=== PATIENT | male | born 1950 | race Caucasian/White ===

== ENCOUNTER 2016-10-10 08:41 | Observation (INO) | payer MEDICARE, OTHER ==
[2016-10-10] VITALS (7 sets, daily range): BP systolic 129–140; BP diastolic 64–96; PULSE 64–79; RESP 15–20; TEMP 97.5–98.6; O2SAT 88–96
[~2016-10-10] VITALS: Ht 172.7 cm; Wt 84.0 kg
--- NOTE | 2016-10-10 08:52 | PD ---
HPI Chief Complaint: syncope Time Seen by Provider: 08:47 Travel History International Travel<30 days: No (unknown) Contact w/Intl Traveler<30days: No (unknown) History of Present Illness HPI 66yo M presents to the ED with c/o episode of syncope today. Pt states he got up and passed out before he hit his head. Pt with laceration on mid forehead. Pt is also complaining of burning sensation in bilateral hands up to around elbow. Pt also had numbness in bilateral hands that is improving on its own. Pt had cervical spine fusion 6 years ago. Denies any fever, chest pain, sob, n/ v, abdominal pain, focal weakness. PFSH Social History Tobacco Use: No (unknown) Allergies-Medications (Allergen,Severity, Reaction): Coded Allergies: No Known Allergies (Unverified , 10/10/16) Reported Meds & Prescriptions Reported Meds & Active Scripts Active Reported Rapaflo (Silodosin) 8 Mg Cap 8 Mg PO DAILY Lipitor (Atorvastatin Calcium) 10 Mg Tab 10 Mg PO HS Carvedilol 6.25 Mg Tab 6.25 Mg PO BID Lisinopril-Hctz 10-12.5 Mg Tab 1 Tab PO DAILY Avodart (Dutasteride) 0.5 Mg Cap 0.5 Mg PO DAILY Aspir-81 (Aspirin) 81 Mg Tabdr Review of Systems Except as stated in HPI: all other systems reviewed are Neg Physical Exam Narrative GENERAL: 66yo M not in distress. SKIN: Warm and dry. HEAD: +6cm superficial laceration in mid forehead. EYES: Pupils equal and round. No scleral icterus. No injection or drainage. ENT: No nasal bleeding or discharge. Mucous membranes pink and moist. NECK: Cervical spine collar in place. CARDIOVASCULAR: Regular rate and rhythm. No murmur appreciated. RESPIRATORY: No accessory muscle use. Clear to auscultation. Breath sounds equal bilaterally. GASTROINTESTINAL: Abdomen soft, non-tender, nondistended. MUSCULOSKELETAL: No obvious deformities. No clubbing. No cyanosis. No edema. NEUROLOGICAL: Awake and alert. No obvious cranial nerve deficits. Motor grossly within normal limits. Sharp pain in bilateral upper extremities, hands and forearm with light touch. Normal speech. PSYCHIATRIC: Appropriate mood and affect; insight and judgment normal. Data Data Last Documented VS Vital Signs Date Time Temp Pulse Resp B/P Pulse Ox O2 Delivery O2 Flow Rate FiO2 10/10/16 08:44 97.5 64 16 130/[address] Brain W/O Iv Contrast(Rout) (10/10/16 ) Ct Cerv Spine W/O Contrast (10/10/16 ) Complete Blood Count With Diff (10/10/16 08:47) Basic Metabolic Panel (Bmp) (10/10/16 08:47) Prothrombin Time / Inr (Pt) (10/10/16 08:47) Act Partial Throm Time (Ptt) (10/10/16 08:47) Electrocardiogram (10/10/16 08:47) Magnesium (Mg) (10/10/16 08:47) Ckmb (Isoenzyme) Profile (10/10/16 08:47) Troponin I (10/10/16 08:47) Urinalysis - C+S If Indicated (10/10/16 08:47) Ecg Monitoring (10/10/16 08:47) Iv Access Insert/Monitor (10/10/16 08:47) Oximetry (10/10/16 08:47) Tetanus/Diphtheria Tox Adult (Tetanus/Di (10/10/16 09:15) Lidocaine 1% Inj (50 Ml) (Xylocaine 1% I (10/10/16 09:15) Acetaminophen (Tylenol) (10/10/16 11:00) Sodium Chlor 0.9% 1000 Ml Inj (Ns 1000 M (10/10/16 11:00) Admit Order (Ed Use Only) (10/10/16 11:07) Labs Laboratory Tests Test 10/10/16 09:00 White Blood Count 5.6 TH/MM3 Red Blood Count 4.78 MIL/MM3 Hemoglobin 14.6 GM/DL Hematocrit 43.0 % Mean Corpuscular Volume 89.9 FL Mean Corpuscular Hemoglobin 30.6 PG Mean Corpuscular Hemoglobin 34.0 % Concent Red Cell Distribution Width 13.2 % Platelet Count 206 TH/MM3 Mean Platelet Volume 8.3 FL Neutrophils (%) (Auto) 59.6 % Lymphocytes (%) (Auto) 23.9 % Monocytes (%) (Auto) 11.4 % Eosinophils (%) (Auto) 4.7 % Basophils (%) (Auto) 0.4 % Neutrophils # (Auto) 3.4 TH/MM3 Lymphocytes # (Auto) 1.3 TH/MM3 Monocytes # (Auto) 0.6 TH/MM3 Eosinophils # (Auto) 0.3 TH/MM3 Basophils # (Auto) 0.0 TH/MM3 CBC Comment DIFF FINAL Differential Comment Prothrombin Time 11.2 SEC Prothromb Time International 1.0 RATIO Ratio Activated Partial 23.5 SEC Thromboplast Time Sodium Level 137 MEQ/L Potassium Level 3.9 MEQ/L Chloride Level 103 MEQ/L Carbon Dioxide Level 26.8 MEQ/L Anion Gap 7 MEQ/L Blood Urea Nitrogen 22 MG/DL Creatinine 1.26 MG/DL Estimat Glomerular Filtration 57 ML/MIN Rate Random Glucose 123 MG/DL Calcium Level 8.8 MG/DL Magnesium Level 2.2 MG/DL Total Creatine Kinase 97 U/L Troponin I LESS THAN 0.02 NG/ML MDM Medical Decision Making Medical Screen Exam Complete: Yes Emergency Medical Condition: Yes Interpretation(s) EKG: Sinus bradycardia at 58bpm. 1st AV block. No ST segment elevation or depression. Differential Diagnosis ICH vs. arrhythmia vs. dehydration vs. electrolyte abnormality Narrative Course 66yo M with forehead laceration s/p fall and syncope. Laceration repair by my PA. Labs reviewed, no leukocytosis. H/H stable. BUN mildly elevated at 22, pt given IVF NS. Troponin negative. CT cspine showed no acute fracture. CT brain normal. Pt given tetanus, acetaminophen. Discussed with Dr. Garrett for admission for further work up of syncope with continuous telemetry monitoring and further work up of paresthesia in hands. Maritza Chao DO Oct 10, 2016 08:52
[2016-10-10] MEDS ORDERED: ASPI81TA81 (09:15)
[2016-10-10] MEDS ORDERED: LIPI10TA PO (09:15)
[2016-10-10] MEDS ORDERED: AVOD0.5C PO (09:15)
[2016-10-10] MEDS ORDERED: TETANUS/DIPHTHERIA TOXOID ADULT 0.5 ML VIAL IM ONE (09:15)
[2016-10-10] MEDS ORDERED: LIDOCAINE HCL 1% 50 ML VIAL INFIL ONE (09:15)
[2016-10-10] MEDS ORDERED: LISI10TA PO (09:15)
[2016-10-10] MEDS ORDERED: RAPA8CAP PO (09:15)
[2016-10-10] MEDS ORDERED: CARV6.252 PO (09:15)
[2016-10-10 09:18] LABS: AUTOMATED NEUTROPHIL # 3.4 TH/MM3 (1.8-7.7); BASOPHIL % 0.4 % (0.0-2.0); EOSINOPHIL # 0.3 TH/MM3 (0-0.4); EOSINOPHIL % 4.7 % (0.0-4.0); HEMO FLAGS DIFF FINAL; LYMPH % 23.9 % (9.0-44.0); LYMPHOCYTE # 1.3 TH/MM3 (1.0-4.8); MEAN CELL VOLUME 89.9 FL (80.0-100.0); MEAN CORPUSCULAR HEMOGLOBIN 30.6 PG (27.0-34.0); MONO % 11.4 % (0.0-8.0); NEUT % 59.6 % (16.0-70.0); PLATELET COUNT 206 TH/MM3 (150-450); RED BLOOD COUNT 4.78 MIL/MM3 (4.50-5.90); RED CELL DISTRIBUTION WIDTH 13.2 % (11.6-17.2); WHITE BLOOD COUNT 5.6 TH/MM3 (4.0-11.0)
[2016-10-10 09:26] LABS: APTT (PATIENT) 23.5 SEC (24.3-30.1); PROTHROMBIN TIME - PATIENT 11.2 SEC (9.8-11.6)
--- NOTE | 2016-10-10 09:35 | RADRPT ---
EXAM DATE/TIME: 10/10/2016 09:07 [facility] COMPARISON: No previous studies available for comparison. INDICATIONS : Syncopal episode with fall; laceration to top of head. RADIATION DOSE: 56.35 CTDIvol (mGy) MEDICAL HISTORY : None SURGICAL HISTORY : Fusion, cervical. ENCOUNTER: Initial ACUITY: 1 day PAIN SCALE: 3/10 LOCATION: cranial TECHNIQUE: Multiple contiguous axial images were obtained of the head. Using automated exposure control and adj ustment of the mA and/or kV according to patient size, radiation dose was kept as low as reasonably a chievable to obtain optimal diagnostic quality images. FINDINGS: CEREBRUM: The ventricles are normal for age. No evidence of midline shift, mass lesion, hemorrhage or acute in farction. No extra-axial fluid collections are seen. POSTERIOR FOSSA: The cerebellum and brainstem are intact. The 4th ventricle is midline. The cerebellopontine angle i s unremarkable. EXTRACRANIAL: The visualized portion of the orbits is intact. SKULL: The calvaria is intact. No evidence of skull fracture. CONCLUSION: Normal examination for a patient of this age. Alex Evangelista MD on October 10, 2016 at 9:32 Board Certified Radiologist. This report was verified electronically.
--- NOTE | 2016-10-10 09:42 | RADRPT ---
EXAM DATE/TIME: 10/10/2016 09:07 [facility] COMPARISON: No previous studies available for comparison. INDICATIONS : Syncopal episode with fall; neck pain, bilateral arm tingling. RADIATION DOSE: 37.27 CTDIvol (mGy) MEDICAL HISTORY : None SURGICAL HISTORY : Fusion, cervical. ENCOUNTER: Initial ACUITY: 1 day PAIN SCALE: 7/10 LOCATION: neck TECHNIQUE: Volumetric scanning of the cervical spine was performed. Multiplanar reconstructions in the sagittal, coronal and oblique axial planes were performed. Using automated exposure control and adjustment o f the mA and/or kV according to patient size, radiation dose was kept as low as reasonably achievable to obtain optimal diagnostic quality images. FINDINGS: Sagittal images demonstrate normal vertebral body alignment and curvature. The odontoid is intact. Th e occipital condyles and lateral masses of C1 are intact. Axial images were performed from C2-C3 to C7-T1. There is anterior cervical fusion with a plate anteriorly from C6-T1. There is osteorathritis involving the atlantoaxial joint with sclerosis and osteophyte formation. C2-C3: There is moderate facet arthritis on the right. There is moderate neural foraminal narrowing on the r ight. There is no significant spinal canal stenosis. C3-C4: Mac uncal moderate rightThere is severe facet arthritis on the right. There is moderate neural thais inal narrowing on the right. C4-C5: No significant abnormalities identified. C5-C6: There is osteophytic ridging along the posterior aspect of vertebral body. There is mild left sided n eural foraminal narrowing. There is no significant spinal canal stenosis. C6-C7: Postsurgical changes as above. There is no significant spinal canal stenosis. C7-T1: Postsurgical changes as above. CONCLUSION: 1. Mild degenerative changes as described above. There is no evidence of acute fracture. There is no significant spinal canal stenosis. David Burnett MD on October 10, 2016 at 9:35 Board Certified Radiologist. This report was verified electronically.
[2016-10-10 09:56] LABS: ANION GAP 7 MEQ/L (5-15); BICARBONATE 26.8 MEQ/L (21.0-32.0); BLOOD UREA NITROGEN 22 MG/DL (7-18); CHLORIDE 103 MEQ/L (98-107); CREATINE KINASE 97 U/L (39-308); GLOMERULAR FILTRATION RATE 57 ML/MIN (>89); MAGNESIUM 2.2 MG/DL (1.5-2.5); POTASSIUM 3.9 MEQ/L (3.5-5.1); SODIUM (NA) 137 MEQ/L (136-145)
[2016-10-10] MEDS ORDERED: SODIUM CHLOR 0.9% 1000 ML INJ 1,000 ML IV ONE (11:00)
[2016-10-10] MEDS ORDERED: ACETAMINOPHEN 325 MG TAB PO ONE (11:00)
--- NOTE | 2016-10-10 11:48 | PD ---
Physical Exam Time Seen by Provider: 11:46 Narrative I was asked by Dr. Chao to repair a laceration on this patient. Please see her note for further details. Data Data Last Documented VS Vital Signs Date Time Temp Pulse Resp B/P Pulse Ox O2 Delivery O2 Flow Rate FiO2 10/10/16 08:44 97.5 64 16 130/[address] Brain W/O Iv Contrast(Rout) (10/10/16 ) Ct Cerv Spine W/O Contrast (10/10/16 ) Complete Blood Count With Diff (10/10/16 08:47) Basic Metabolic Panel (Bmp) (10/10/16 08:47) Prothrombin Time / Inr (Pt) (10/10/16 08:47) Act Partial Throm Time (Ptt) (10/10/16 08:47) Electrocardiogram (10/10/16 08:47) Magnesium (Mg) (10/10/16 08:47) Ckmb (Isoenzyme) Profile (10/10/16 08:47) Troponin I (10/10/16 08:47) Urinalysis - C+S If Indicated (10/10/16 08:47) Ecg Monitoring (10/10/16 08:47) Iv Access Insert/Monitor (10/10/16 08:47) Oximetry (10/10/16 08:47) Tetanus/Diphtheria Tox Adult (Tetanus/Di (10/10/16 09:15) Lidocaine 1% Inj (50 Ml) (Xylocaine 1% I (10/10/16 09:15) Acetaminophen (Tylenol) (10/10/16 11:00) Sodium Chlor 0.9% 1000 Ml Inj (Ns 1000 M (10/10/16 11:00) Admit Order (Ed Use Only) (10/10/16 11:07) Labs Laboratory Tests Test 10/10/16 09:00 White Blood Count 5.6 TH/MM3 Red Blood Count 4.78 MIL/MM3 Hemoglobin 14.6 GM/DL Hematocrit 43.0 % Mean Corpuscular Volume 89.9 FL Mean Corpuscular Hemoglobin 30.6 PG Mean Corpuscular Hemoglobin 34.0 % Concent Red Cell Distribution Width 13.2 % Platelet Count 206 TH/MM3 Mean Platelet Volume 8.3 FL Neutrophils (%) (Auto) 59.6 % Lymphocytes (%) (Auto) 23.9 % Monocytes (%) (Auto) 11.4 % Eosinophils (%) (Auto) 4.7 % Basophils (%) (Auto) 0.4 % Neutrophils # (Auto) 3.4 TH/MM3 Lymphocytes # (Auto) 1.3 TH/MM3 Monocytes # (Auto) 0.6 TH/MM3 Eosinophils # (Auto) 0.3 TH/MM3 Basophils # (Auto) 0.0 TH/MM3 CBC Comment DIFF FINAL Differential Comment Prothrombin Time 11.2 SEC Prothromb Time International 1.0 RATIO Ratio Activated Partial 23.5 SEC Thromboplast Time Sodium Level 137 MEQ/L Potassium Level 3.9 MEQ/L Chloride Level 103 MEQ/L Carbon Dioxide Level 26.8 MEQ/L Anion Gap 7 MEQ/L Blood Urea Nitrogen 22 MG/DL Creatinine 1.26 MG/DL Estimat Glomerular Filtration 57 ML/MIN Rate Random Glucose 123 MG/DL Calcium Level 8.8 MG/DL Magnesium Level 2.2 MG/DL Total Creatine Kinase 97 U/L Troponin I LESS THAN 0.02 NG/ML MDM Medical Record Reviewed: Yes Supervised Visit with STONEY: Yes Procedures Procedure Narrative LACERATION LOCATION: Middle forehead LENGTH: 6 cm NUMBER OF STITCHES/CARLOS: 7 simple interrupted REPAIR: The area of the laceration was prepped with Betadine and sterilely draped. The laceration was infiltrated with 1% lidocaine. The wound was copiously irrigated and explored without evidence of foreign body, tendon injury or neurovascular injury. The wound was closed using 6-0 Prolene. This was a single layer repair. A sterile dressing was applied. The patient was advised to keep the dressing clean and dry. Patient tolerated the procedure well. Romina Kemp Oct 10, 2016 11:48
--- NOTE | 2016-10-10 12:53 | RADRPT ---
EXAM DATE/TIME: 10/10/2016 11:57 [facility] COMPARISON: No previous studies available for comparison. INDICATIONS : Syncope. MEDICAL HISTORY : Hypercholesterolemia. Hypertension. BPH. SURGICAL HISTORY : Lumbar disectomy. Nerve release cervical fusion. Right total knee replacement. ENCOUNTER: Initial ACUITY: 1 day PAIN SCORE: 0/10 LOCATION: Bilateral neck PEAK SYSTOLIC VELOCITIES (cm/sec): ICA/CCA RATIO: Right: 1.1 Left: 1.0 ICA: Right: 112 Left: 76 CCA: Right: 102 Left: 72 ECA: Right: 91 Left: 93 VERTEBRAL: Right: 51 antegrade Left: 40 antegrade Elevated flow velocities and ICA/CCA ratios have been found to correlate with increased degrees of vessel stenosis, calculated as percentage of diameter relative to a normal segment of distal ICA/CCA FINDINGS: RIGHT CAROTID: No significant stenosis is visualized. The waveforms are within normal limits. LEFT CAROTID: No significant stenosis is visualized. The waveforms are within normal limits. VERTEBRAL ARTERIES: Antegrade flow is seen in both vertebral arteries. MISCELLANEOUS: None. CONCLUSION: Normal examination for a patient of this age. Alex Evangelista MD on October 10, 2016 at 12:51 Board Certified Radiologist. This report was verified electronically.
[2016-10-10] MEDS ORDERED: PILL SPLITTER OTHER PRN (13:45)
[2016-10-10 15:11] LABS: BLOOD, URINE NEG (NEG); COMMENT (UR) CULT NOT INDICATED; CULTURE IF INDICATED CULT NOT INDICATED; GLUCOSE,URINE NEG (NEG); KETONE, URINE TRACE mg/dL (NEG); NITRITE,URINE NEG (NEG); PH, URINE 5.5 (5.0-8.5); SQUAMOUS EPITHELIAL CELL URINE 1 /hpf (0-5); URINE COLOR YELLOW (YELLW/STRAW)
[2016-10-10] MEDS ORDERED: SODIUM CHLORIDE 0.9% FLUSH 5 ML FLUSH IV PRN (15:30)
--- NOTE | 2016-10-10 16:23 | HHI.HP ---
HPI [facility] Primary Care Physician Quincy Ogden M.D. Admission Diagnosis Syncope Diagnoses: (1) Syncope Diagnosis: Principal (2) Degenerative disc disease, cervical Diagnosis: Principal (3) Degenerative disc disease, lumbar Diagnosis: Principal (4) Dehydration Diagnosis: Secondary (5) EtOH dependence Diagnosis: Secondary (6) Osteoarthritis (arthritis due to wear and tear of joints) Diagnosis: Secondary Chief Complaint: "passed out" and hit head, Bilateral numbing and pain hands to elbow (Nora Cox) Travel History International Travel<30 Days: No (unknown) Contact w/Intl Traveler <30 Da: No (unknown) Traveled to Known Affected Are: No (Nora Cox) History of Present Illness Patient is a 66-year-old white male who has been in his usual state of health up until the past couple of days. Patient states that he increased his cardio training and walking yesterday and noticed some aching in his hips bilateral as well as his lower back. He denies any headache, no chest pain, no shortness of breath, and had no acute dizziness last p.m. he awoke this morning, got up to go to the bathroom, and had a syncopal episode before reaching the bathroom He does not remember hitting the floor, but did wake up. His came in and found him on the floor with a laceration to his mid forehead. states she felt like patient fell forward and slid down the wall. Patient has had no significant weight change in the past year, no changes in his appetite, denies any diarrhea or constipation, and no fever. Patient does have a significant history of degenerative disc disease with multiple surgeries noted predominantly in the cervical area. He does note to other discectomies as well as T1 surgery. He reports having an MRI in February 2016. Patient was brought to the emergency room where his laceration was sutured. (Nora Cox) Review of Systems ROS Limitations: Other (12 pt. review obtained with positives and negative in the HPI.) (Nora Cox) Past Family Social History Past Medical History Degenerative disc disease Previous tobacco use but quit in 1976 Current EtOH use/dependence with 1-2 glasses of wine a day versus consumption of beer daily. Hypertension Hyperlipidemia BPH Past Surgical History Cervical surgery 2 Right knee surgery Discectomy Left ulnar surgery Reported Medications Medications reconciled. Active Medications Acetaminophen 650 mg 650 mg ONCE ONCE PO Last administered on 10/10/16 11:19; Admin Dose 650 MG; Start 10/10/16 at 11:00; Stop 10/10/16 at 11:01; Status DC Atorvastatin Calcium (Lipitor) 10 mg HS PO; Start 10/10/16 at 21:00 Carvedilol (Coreg) 6.25 mg BID PO; Start 10/10/16 at 21:00 Finasteride (Proscar) 5 mg DAILY PO; Start 10/11/16 at 09:00 Hydrochlorothiazide (Hydrodiuril) 12.5 mg DAILY PO; Start 10/11/16 at 09:00 IV Flush (NS Flush) 2 ml BID IV; Start 10/10/16 at 21:00 IV Flush (NS Flush) 2 ml UNSCH PRN IV; Start 10/10/16 at 15:30 Lidocaine HCl (Xylocaine 1% Inj (50 ml)) 50 ml ONCE ONCE INFIL Last administered on 10/10/16 09:50; Admin Dose 50 ML; Start 10/10/16 at 09:15; Stop 10/10/16 at 09:16; Status DC Lisinopril (Prinivil) 10 mg DAILY PO; Start 10/11/16 at 09:00 Miscellaneous (Pill Splitter) 1 ea UNSCH PRN OTHER; Start 10/10/16 at 13:45 Sodium Chloride (NS 1000 ml Inj) 1,000 ml @ 999 mls/hr BOLUS ONCE IV Last administered on 10/10/16 11:19; Admin Dose 999 MLS/HR; Start 10/10/16 at 11:00 ; Stop 10/10/16 at 12:04; Status DC Tamsulosin HCl (Flomax) 0.4 mg DAILY PO; Start 10/11/16 at 09:00 Tetanus/ Diphtheria Toxoids (Tetanus/ Diphtheria Tox Adult) 0.5 ml ONCE ONCE IM Last administered on 10/10/16 09:50; Admin Dose 0.5 ML; Start 10/10/16 at 09:15 ; Stop 10/10/16 at 09:16; Status DC (Nora Cox) Allergies: Coded Allergies: No Known Allergies (Unverified , 10/10/16) Active Ordered Medications Active Medications Acetaminophen 650 mg 650 mg ONCE ONCE PO Last administered on 10/10/16 11:19; Admin Dose 650 MG; Start 10/10/16 at 11:00; Stop 10/10/16 at 11:01; Status DC Atorvastatin Calcium (Lipitor) 10 mg HS PO; Start 10/10/16 at 21:00 Carvedilol (Coreg) 6.25 mg BID PO; Start 10/10/16 at 21:00 Finasteride (Proscar) 5 mg DAILY PO; Start 10/11/16 at 09:00 Hydrochlorothiazide (Hydrodiuril) 12.5 mg DAILY PO; Start 10/11/16 at 09:00 IV Flush (NS Flush) 2 ml BID IV; Start 10/10/16 at 21:00 IV Flush (NS Flush) 2 ml UNSCH PRN IV; Start 10/10/16 at 15:30 Lidocaine HCl (Xylocaine 1% Inj (50 ml)) 50 ml ONCE ONCE INFIL Last administered on 10/10/16 09:50; Admin Dose 50 ML; Start 10/10/16 at 09:15; Stop 10/10/16 at 09:16; Status DC Lisinopril (Prinivil) 10 mg DAILY PO; Start 10/11/16 at 09:00 Miscellaneous (Pill Splitter) 1 ea UNSCH PRN OTHER; Start 10/10/16 at 13:45 Sodium Chloride (NS 1000 ml Inj) 1,000 ml @ 999 mls/hr BOLUS ONCE IV Last administered on 10/10/16 11:19; Admin Dose 999 MLS/HR; Start 10/10/16 at 11:00 ; Stop 10/10/16 at 12:04; Status DC Tamsulosin HCl (Flomax) 0.4 mg DAILY PO; Start 10/11/16 at 09:00 Tetanus/ Diphtheria Toxoids (Tetanus/ Diphtheria Tox Adult) 0.5 ml ONCE ONCE IM Last administered on 10/10/16 09:50; Admin Dose 0.5 ML; Start 10/10/16 at 09:15 ; Stop 10/10/16 at 09:16; Status DC Family History Hypertension Cancer EtOH abuse Social History Patient is now a nonsmoker Patient does consume daily alcohol usually with wine and or beer Patient is currently lives at home with his (Nora Cox) Physical Exam Vital Signs Vital Signs Date Time Temp Pulse Resp B/P Pulse Ox O2 Delivery O2 Flow Rate FiO2 10/10/16 15:45 94 21 10/10/16 14:33 68 15 133/83 94 10/10/16 11:22 67 16 133/83 96 Room Air 10/10/16 08:44 97.5 64 16 130/96 88 Physical Exam GENERAL: This is a well-nourished, well-developed patient, in mild distress with bilateral arm numbness. SKIN: No rashes, ecchymoses or lesions. Cool and dry. HEAD: traumatic mid forehead laceration, sutured minimal edema. Normocephalic. No temporal tenderness. EYES: Pupils 2 mm,equal round and reactive. Extraocular motions intact. No scleral icterus. No injection or drainage. ENT: Nose without bleeding, purulent drainage or septal hematoma. Throat without erythema, tonsillar hypertrophy or exudate. Uvula midline. Airway patent. NECK: Trachea midline. No JVD or lymphadenopathy. Supple, nontender. CARDIOVASCULAR: Regular rate and rhythm without murmurs, gallops, or rubs. No pedal edema bilateral RESPIRATORY: Clear to auscultation. Breath sounds equal bilaterally. No wheezes , rales, or rhonchi. GASTROINTESTINAL: Abdomen soft, non-tender, nondistended. No hepato-splenomegaly , or palpable masses. No guarding. MUSCULOSKELETAL: Extremities without clubbing, cyanosis, or edema. No joint tenderness, effusion, or edema noted. No calf tenderness. Can move all extremities with purpose, but some weakness noted bilateral lower arms. NEUROLOGICAL: Awake and alert 4. Motor and sensory numbness bilateral hands up to elbows. 5 out of 5 muscle strength in all other muscle groups. Normal speech. Laboratory Laboratory Tests Test 10/10/16 10/10/16 09:00 14:25 White Blood Count 5.6 Red Blood Count 4.78 Hemoglobin 14.6 Hematocrit 43.0 Mean Corpuscular Volume 89.9 Mean Corpuscular Hemoglobin 30.6 Mean Corpuscular Hemoglobin 34.0 Concent Red Cell Distribution Width 13.2 Platelet Count 206 Mean Platelet Volume 8.3 Neutrophils (%) (Auto) 59.6 Lymphocytes (%) (Auto) 23.9 Monocytes (%) (Auto) 11.4 Eosinophils (%) (Auto) 4.7 Basophils (%) (Auto) 0.4 Neutrophils # (Auto) 3.4 Lymphocytes # (Auto) 1.3 Monocytes # (Auto) 0.6 Eosinophils # (Auto) 0.3 Basophils # (Auto) 0.0 CBC Comment DIFF FINAL Differential Comment Prothrombin Time 11.2 Prothromb Time International 1.0 Ratio Activated Partial 23.5 Thromboplast Time Sodium Level 137 Potassium Level 3.9 Chloride Level 103 Carbon Dioxide Level 26.8 Anion Gap 7 Blood Urea Nitrogen 22 Creatinine 1.26 Estimat Glomerular Filtration 57 Rate Random Glucose 123 Calcium Level 8.8 Magnesium Level 2.2 Total Creatine Kinase 97 Troponin I LESS THAN 0.02 Urine Color YELLOW Urine Turbidity CLEAR Urine pH 5.5 Urine Specific [place] 1.016 Urine Protein NEG Urine Glucose (UA) NEG Urine Ketones TRACE Urine Occult Blood NEG Urine Nitrite NEG Urine Bilirubin NEG Urine Urobilinogen LESS THAN 2.0 Urine Leukocyte Esterase NEG Urine RBC 1 Urine WBC 1 Urine Squamous Epithelial 1 Cells Microscopic Urinalysis Comment CULT NOT INDICATED (Nora Cox) Result Diagram: 10/10/16 0900 10/10/16 0900 Imaging Last Impressions Head CT 10/10/16 0000 Signed Impressions: Service Date/Time: September 09:07 - CONCLUSION: Normal examination for a patient of this age. Alex Evangelista MD Cervical Spine CT 10/10/16 0000 Signed Impressions: Service Date/Time: September 09:07 - CONCLUSION: 1. Mild degenerative changes as described above. There is no evidence of acute fracture. There is no significant spinal canal stenosis. David Burnett MD Carotid Artery Ultrasound 10/10/16 0000 Signed Impressions: Service Date/Time: September 11:57 - CONCLUSION: Normal examination for a patient of this age. Alex Evangelista MD (Nora Cox) Assessment and Plan Problem List: (1) Syncope (2) Degenerative disc disease, cervical (3) Dehydration (4) Degenerative disc disease, lumbar (5) EtOH dependence (6) Osteoarthritis (arthritis due to wear and tear of joints) Assessment and Plan Admission for observation which will include telemetry monitoring, vital signs, monitoring of labs Echocardiogram ordered Carotid ultrasound bilateral ordered Bed rest at least for 24 hours. If the patient needs to go to the bathroom he has to call for assistance SCDs, Add ASA Neurology consult for their expert opinion. Patient had MRI within the past year but they may need further testing. Neuro checks, labs as warrented. By mouth hydration, regular diet Monitor for any increased anxiety or tremors. DT precautions DVT prophaylaxis Will hold off on any blood thinners until discussed with Dr. Garrett. fernandez to head laceration and fall. Code Status Full code, full agressive care. Discussed With: Nurse, Family (), Other (Dr. Garrett, saw pt. 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
[2016-10-10] MEDS: DEXAMETHASONE 4 MG TAB PO SCH ×2 (18:13→23:33)
[2016-10-10] MEDS ORDERED: GADODIAMIDE PF 287 MG/ML 20 ML VIAL (for RAD MRI) IV ONE (19:16)
--- NOTE | 2016-10-10 20:20 | MG ---
cc: RADHA SCHUMACHER MD Lab No: [id number] Date: 10/10/16 Age: 66 Sex: M Race: DATE OF : 1950 INDICATION A 66-year-old. Syncopal episode. DESCRIPTION OF RECORD Low amplitude, 5-7 Hz activity, 10-30 microvolts. Myogenic artifact in the frontal channels. Further slowing suggestive of driving state. Limited driving with photic stimulation. Appeared to be arousable with improved background, 7-8 Hz, followed with theta slowing. Good buildup with hyperventilation. Overall good EEG variability reactivity. Single-lead EKG showing sinus rhythm. INTERPRETATION Minimal encephalopathy in sleep state. No active seizures. Clinical correlation. MD BRANDO Pickens/JIMMY /7:40 PM /8:00 PM MTDFrancesca
--- NOTE | 2016-10-10 20:25 | RADRPT ---
EXAM DATE/TIME: 10/10/2016 19:07 [facility] COMPARISON: CT CERVICAL SPINE W/O CONTRAST, October 10, 2016, 9:07. INDICATIONS : Pain. Burning and tingling in bilateral arms. Fell on 10/10/2016. CONTRAST: 16 cc Omniscan (gadodiamide) IV MEDICAL HISTORY : Hypertension. SURGICAL HISTORY : Fusion, cervical. Fusion, lumbar. Total knee replacement, right. ENCOUNTER: Initial ACUITY: 1 day PAIN SCORE: 8/10 LOCATION: Neck. TECHNIQUE: Multiplanar, multisequence MRI examination of the cervical spine was performed. FINDINGS: There is a minimally displaced fracture of the posterior spinous process of C4. There is edema and/or hemorrhage in the soft tissues around the C3, C4 and C5 posterior spinous processes. There is a prob able interspinous ligament injury. I don't see any other clear evidence of ligament disruption. Howev er, there is fluid in the retropharyngeal space from C2-C5/C6, measures about 9 mm in maximal thickne ss and 6.2 cm in craniocaudal length. This actually shows some rim enhancement after contrast adminis tration. Patient has had hormone anterior discectomy and fusion procedure with anterior instrumentation at C6/ C7 and C7/T1. These levels appear solidly bridged in normal alignment and without evidence of signifi cant recurrent or residual foraminal or spinal stenosis. There are broad posterior disc osteophyte complexes with uncovertebral and facet osteoarthritis at C4 /C5 and C5/C6, both levels with moderate spinal stenosis and moderate to severe bilateral foraminal s tenosis. No epidural hematoma seen. CONCLUSION: 1. Acute, minimally displaced posterior spinous process fracture of C4 and with probably a sprain of the posterior interspinous ligament. No subluxations or evidence of anterior or posterior longitudina l ligament disruption. 2. There is a prevertebral fluid collection from C2-C5/C6 as described above. I believe this may be a chronic seroma from previous surgery/fusion at C6/C7 and C7/T1 but it is somewhat atypical for such as there seems to be some rim enhancement. A retropharyngeal abscess is doubted because the soft tiss ues do not appear indurated and the adjacent bones are normal. The appearance is not typical of a hem atoma. There is also no evidence of an epidural hematoma. 3. Multilevel cervical degenerative changes as above. Patricio Wade MD on October 10, 2016 at 20:13 Board Certified Radiologist. This report was verified electronically.
--- NOTE | 2016-10-10 20:50 | EKG ---
Date Performed: 10/10/2016 Time Performed: 09:37:55 PTAGE: 66 years EKG: SINUS BRADYCARDIA WITH FIRST DEGREE AV BLOCK ABNORMAL ECG PREVIOUS TRACING : 10/25/1996 15.31 DOCTOR: Josse Selyb Interpretating Date/Time 10/10/2016 20:49:19
[2016-10-10] MEDS: CARVEDILOL 6.25 MG TAB PO SCH (20:57)
[2016-10-10] MEDS: SODIUM CHLORIDE 0.9% FLUSH 5 ML FLUSH IV SCH (20:58)
[2016-10-10] MEDS ORDERED: ATORVASTATIN 10 MG TAB PO SCH (21:00)
[2016-10-10] MEDS: ACETAMINOPHEN 325 MG TAB PO PRN (23:39)
[2016-10-11 00:13] VITALS: PULSE 80
[2016-10-11 00:24] VITALS: BP 136/82; PULSE 70; RESP 20; TEMP 98.4; O2SAT 96
[2016-10-11 04:53] VITALS: BP_SYST 161; BP_SYST 180; BP_SYST 189; BP_DIAS 95; BP_DIAS 97; PULSE 99; RESP 19; TEMP 98.1; O2SAT 93
--- NOTE | 2016-10-11 05:24 | MB ---
cc: RA JUANAMIE DATE OF CONSULTATION 10/10/2016 REASON FOR CONSULTATION Syncopal episode. HISTORY OF PRESENT ILLNESS A 66-year-old male who presents to the emergency room after he sustained a fall where he describes the incident as, when he stood up after waking up from sleep, he felt suddenly a spinning sensation, lightheaded and fell down. "All happened at once" and fell down on the floor hitting his head but he denies any loss of consciousness, a postictal confusion state, tongue-biting, foaming from the mouth or loss of sphincter control and no convulsions were reported. He hurt his neck and he hurt his head but there was no double vision, blurred vision or slurred speech accompanying or weakness of the arm. The patient states that he has occasional dizzy spells of brief duration that never escalated to the point where he falls and he emphasized that this occurred when he stood up. The patient denies any chest pain, dehydration, however, he said he worked more than usual the previous day. The patient denies any history of stroke or TIA, but he states that he has significant past history of degenerative disk disease and has cervical and thoracic spine with multiple surgeries. REVIEW OF SYSTEMS A 12-point review systems was negative except for what is stated in the HPI. PAST MEDICAL HISTORY 1. Degenerative disk disease. 2. He is to smoke tobacco, quit 1976. 3. Drinks two glasses of wine daily. 4. Hypertension, 5. Hyperlipidemia. 6. BPH. PAST SURGICAL HISTORY 1. Twice cervical surgery. 2. Right knee surgery. 3. Diskectomy. 4. Left ulnar surgery. MEDICATIONS 1. Acetaminophen. 2. Atorvastatin. 3. Carvedilol. 4. Finasteride. 5. Hydrochlorothiazide. 6. Lidocaine. 7. Lisinopril. 8. Tamsulosin. ALLERGIES No known allergies. FAMILY HISTORY Hypertension, cancer and ethanol. SOCIAL HISTORY Current nonsmoker but ex-smoker. Daily alcohol - wine or beer. Lives at home with his . EXAMINATION GENERAL: Good historian, pleasant, in mild distress because of the pain in his left upper extremity, back of his neck, upper left shoulder and head. HEENT: Laceration on the scalp and forehead. Intact vision, intact hearing. NECK: No JVD. Supple. Tenderness in the muscle and stiffness in the muscle of the back of the neck. No carotid bruits. CARDIOVASCULAR: Regular rate and rhythm, without murmurs. RESPIRATORY: Clear to auscultation. No wheezes. MUSCULOSKELETAL: No clubbing, no cyanosis, no edema. Limited movements in the left upper extremity due to pain especially in and around the shoulder area and lower neck. NEUROLOGIC: Awake, alert, oriented to time, person and place. Intact speech. Intact speech content. Cranial nerves II-XII are grossly intact. Motor system examination - 5/5 muscle strength with limitation of movements across the left shoulder and left wrist due to pain. However, there is questionable weakness of wrist extension on the left upper extremity despite obscuration by pain, 5-/5 in wrist extension and elbow extension. Sensation is intact, bilateral and symmetrical throughout. Cerebellar function, [id number] and [id number] are intact. Reflexes 2+ bilateral, symmetrical. Plantars are bilaterally downgoing. LABORATORY DATA White blood cells 5.6, hemoglobin 14.6, platelet count 206. Sodium 137, potassium 3.9, chloride 103, anion gap 7, BUN 22, creatinine 1.26, random glucose 123, calcium 8.8, magnesium 2.2. Total CK 97. DIAGNOSTIC IMAGING Head CT scan without contrast, with no acute intracranial abnormality. Carotid ultrasound - Normal examination. Cervical spine CT revealed mild degenerative changes. No evidence of acute fracture, no significant spinal canal stenosis. Cervical spine MRI revealed acute minimally displaced posterior spinous process fracture of C4 with probably a sprain of the posterior interspinous ligament. No subluxations or evidence of anterior or posterior longitudinal ligament disruption. There is prevertebral fluid collection from C2-C5/C6, may be chronic seroma from previous surgery fusion. A retropharyngeal abscess is doubted because the soft tissues do not appear indurated and the adjacent bones are normal. Appearance is not typical of a hematoma. There is also evidence of an epidural hematoma. Multilevel cervical degenerative changes are seen. EEG There was no active seizure and there is mild minimal encephalopathy in the sleep state. DIAGNOSTIC IMPRESSION - Syncopal episode. Likely etiology is cardiovascular, less likely of central nervous system origin. - Fracture of C4 spinous process, status post a fall. I explained to the patient the nature of the symptoms and the possible etiologies and the most likely etiology is cardiovascular given the nonfocal neurological examination, the negative imaging and the EEG. However, there is suspicion of weakness in the left upper extremity and wrist extension and elbow extension that may be explained by the trauma to the cervical spine. PLAN 1. Neuro checks q. 4 hours. 2. Neurosurgery/spine surgery recommendations are appreciated. 3. Dexamethasone IV 4 mg q. 6 hours. 4. Pain management per the primary team. 5. DVT prophylaxis, SCDs. 6. GI prophylaxis. Thank you for the opportunity to participate in the care of your patient. MD GIOVANA Mac/JOHANA /10:52 PM /5:02 AM [facility]
[2016-10-11] MEDS: ACETAMINOPHEN 325 MG TAB PO PRN (05:54)
[2016-10-11] MEDS: DEXAMETHASONE 4 MG TAB PO SCH ×2 (05:54→12:00)
[2016-10-11 07:31] VITALS: BP_SYST 121; BP_SYST 150; BP_SYST 154; BP_DIAS 76; BP_DIAS 88; BP_DIAS 90; PULSE 76; RESP 18; TEMP 97.9; O2SAT 95
[2016-10-11 07:51] LABS: AUTOMATED NEUTROPHIL # 8.3 TH/MM3 (1.8-7.7); BASOPHIL % 0.1 % (0.0-2.0); HEMATOCRIT 44.9 % (39.0-51.0); HEMO FLAGS DIFF FINAL; LYMPH % 8.3 % (9.0-44.0); LYMPHOCYTE # 0.8 TH/MM3 (1.0-4.8); MEAN CELL VOLUME 89.8 FL (80.0-100.0); MEAN CORPUSCULAR HEMOGLOBIN 30.2 PG (27.0-34.0); MEAN CORPUSCULAR HGB CONC 33.6 % (32.0-36.0); MONO % 2.3 % (0.0-8.0); NEUT % 89.3 % (16.0-70.0); PLATELET COUNT 222 TH/MM3 (150-450); RED CELL DISTRIBUTION WIDTH 13.4 % (11.6-17.2); WHITE BLOOD COUNT 9.3 TH/MM3 (4.0-11.0)
[2016-10-11 08:16] LABS: BICARBONATE 24.7 MEQ/L (21.0-32.0); POTASSIUM 3.8 MEQ/L (3.5-5.1)
[2016-10-11 08:42] VITALS: PULSE 77
[2016-10-11] MEDS: SODIUM CHLORIDE 0.9% FLUSH 5 ML FLUSH IV SCH (08:55)
[2016-10-11] MEDS: CARVEDILOL 6.25 MG TAB PO SCH (08:55)
[2016-10-11] MEDS ORDERED: FINASTERIDE 5 MG TAB PO SCH (09:00)
[2016-10-11] MEDS ORDERED: PANTOPRAZOLE SOD 40 MG DELAYED RELEASE TAB PO SCH (09:00)
[2016-10-11] MEDS ORDERED: LISINOPRIL 10 MG TAB PO SCH (09:00)
[2016-10-11] MEDS ORDERED: HYDROCHLOROTHIAZIDE 25 MG TAB PO SCH (09:00)
[2016-10-11] MEDS ORDERED: TAMSULOSIN HCL 0.4 MG CAP PO SCH (09:00)
--- NOTE | 2016-10-11 09:04 | EC ---
Study Study Date:10/10/2016 STUDY CONCLUSIONS SUMMARY - Procedure narrative: Transthoracic echocardiography. Image quality was fair. Scanning was performed from the parasternal, apical, and subcostal acoustic windows. - Left ventricle: The cavity size was normal. Wall thickness was normal. Systolic function was normal. The estimated ejection fraction was in the range of 55% to 60%. Although no diagnostic regional wall motion abnormality was identified, this possibility cannot be completely excluded on the basis of this study. - Aortic valve: Poorly visualized. - Mitral valve: Trace regurgitation. If LV function is below 40, please consider prescribing an ACEI or ARB or document rationale for non-use. PROCEDURE DATA STUDY STATUS: Elective. Procedure: Transthoracic echocardiography. Image quality was fair. Scanning was performed from the parasternal, apical, and subcostal acoustic windows. Study completion: The patient tolerated the procedure well. Transthoracic echocardiography. M-mode, complete 2D, complete spectral Doppler, and color Doppler. Height: Height: 68in. Weight: Weight: 184.6lb. Body mass index: BMI: 28.1kg/m^2. Body surface area: BSA: 1.98m^2. Patient status: Inpatient. CARDIAC ANATOMY LEFT VENTRICLE: The cavity size was normal. Wall thickness was normal. Systolic function was normal. The estimated ejection fraction was in the range of 55% to 60%. Although no diagnostic regional wall motion abnormality was identified, this possibility cannot be completely excluded on the basis of this study. AORTIC VALVE: Poorly visualized. Doppler: Transvalvular velocity was within the normal range. There was no stenosis. No regurgitation. Valve area: 1.58cm^2(VTI). Indexed valve area: 0.8cm^2/m^2 (VTI). Valve area: 1.55cm^2 (Vmax). Indexed valve area: 0.78cm^2/m^2 (Vmax). Mean gradient: 5mm Hg (S). AORTA: Aortic root: The aortic root was normal in size. MITRAL VALVE: Structurally normal valve. Doppler: Transvalvular velocity was within the normal range. There was no evidence for stenosis. Trace regurgitation. LEFT ATRIUM: The atrium was normal in size. RIGHT VENTRICLE: The cavity size was normal. Wall thickness was normal. PULMONIC VALVE: Doppler: Transvalvular velocity was within the normal range. There was no evidence for stenosis. No regurgitation. TRICUSPID VALVE: Structurally normal valve. Doppler: Transvalvular velocity was within the normal range. No regurgitation. PULMONARY ARTERY: The main pulmonary artery was normal-sized. Systolic pressure was within the normal range. RIGHT ATRIUM: The atrium was normal in size. PERICARDIUM: There was no pericardial effusion. SYSTEMIC VEINS: Inferior vena cava: The vessel was normal in size. Patient weight: 184.6lb _Ejection fraction:_ 65-75% _Fractional shortening:_ 32% up to 5Kg 5-11.5Kg 11.6-22.9Kg 23-45Kg 45-57Kg Aortic Root 7-13 <17 13-22 17-27 17-27 LA diam 6-13 <23 24-38 33-47 37-40 RVID 10-17 7-15 7-15 7-18 8-17 LVIDd 12-22 <32 24-38 33-47 37-40 LVPW 2-4 3-6 5-7 6-8 7-8 IVS 2-4 3-6 5-7 6-8 7-8 BASIC MEASUREMENTS ADULT NORMAL Left ventricle LV internal dimension, ED, chordal 43 mm 43-52 level, PLAX LV internal dimension, ES, chordal 28.1 mm 23-38 level, PLAX Fractional shortening, chordal level, 35 % >29 PLAX LV posterior wall thickness, ED 8.47 mm IVS/LVPW ratio, ED 1.17 <1.3 Ventricular septum Septal thickness, ED 9.94 mm Aortic valve Leaflet separation 18 mm 15-26 Aorta Root diameter, ED 33 mm Left atrium Anterior-posterior dimension 30 mm Anterior-posterior dimension index 1.52 cm/m^2 <2.2 BASIC MEASUREMENTS ADULT NORMAL Aortic valve Leaflet separation 18 mm 15-26 DOPPLER MEASUREMENTS ADULT NORMAL Main pulmonary artery Pressure, S 26 mm Hg =30 Aortic valve Peak velocity, S 153 cm/s Mean velocity, S 109 cm/s VTI, S 27.2 cm Mean gradient, S 5 mm Hg Valve area, VTI 1.58 cm^2 Valve area index, VTI 0.8 cm^2/m^2 Valve area, Vmax 1.55 cm^2 Valve area index, Vmax 0.78 cm^2/m^2 Mitral valve Peak E-wave velocity 53.3 cm/s Peak A-wave velocity 74 cm/s Deceleration time *246 ms 150-230 Peak E/A ratio 0.7 Tricuspid valve Regurgitant peak velocity 247 cm/s Peak RV-RA gradient, S 24 mm Hg Maximal regurgitant velocity 247 cm/s Systemic veins Estimated CVP 5 mm Hg Right ventricle RV pressure, S 29 mm Hg <30 Pulmonic valve Peak velocity, S 80.5 cm/s LEGEND: Mean values are shown as u=mean value. Asterisk (*) sweeney values outside specified normal range. Prepared and signed by Ronnie Moore [id number]
[2016-10-11] MEDS ORDERED: PNEUMOCOCCAL POLYVALENT INJ 25 MCG/0.5 ML SYR IM ONE (10:00)
--- NOTE | 2016-10-11 10:33 | HHI.PR ---
Subjective History of Present Illness feels better neck pain is better less numbness in arm able to use left hand better No headache No N/V No CP or SOB eager to go home & brother are at bedside Vitals/Results Vital Signs Vital Signs Date Time Temp Pulse Resp B/P Pulse Ox O2 Delivery O2 Flow Rate FiO2 10/11/16 08:42 77 10/11/16 07:31 97.9 76 18 150/76 95 154/88 121/90 10/11/16 04:53 98.1 99 19 161/ 93 180/95 189/97 10/11/16 00:24 98.4 70 20 136/82 96 10/11/16 00:13 80 10/10/16 20:44 98.5 73 20 140/84 94 10/10/16 19:43 73 10/10/16 17:30 98.6 79 18 129/64 94 10/10/16 15:45 94 21 10/10/16 14:33 68 15 133/83 94 10/10/16 11:22 67 16 133/83 96 Room Air CBC/BMP: 10/11/16 0642 10/11/16 0642 Lab Results Laboratory Tests Test 10/10/16 10/11/16 14:25 06:42 Urine Color YELLOW Urine Turbidity CLEAR Urine pH 5.5 Urine Specific [place] 1.016 Urine Protein NEG mg/dL Urine Glucose (UA) NEG mg/dL Urine Ketones TRACE mg/dL Urine Occult Blood NEG Urine Nitrite NEG Urine Bilirubin NEG Urine Urobilinogen LESS THAN 2.0 MG/DL Urine Leukocyte Esterase NEG Urine RBC 1 /hpf Urine WBC 1 /hpf Urine Squamous Epithelial 1 /hpf Cells Microscopic Urinalysis Comment CULT NOT INDICATED White Blood Count 9.3 TH/MM3 Red Blood Count 5.00 MIL/MM3 Hemoglobin 15.1 GM/DL Hematocrit 44.9 % Mean Corpuscular Volume 89.8 FL Mean Corpuscular Hemoglobin 30.2 PG Mean Corpuscular Hemoglobin 33.6 % Concent Red Cell Distribution Width 13.4 % Platelet Count 222 TH/MM3 Mean Platelet Volume 8.3 FL Neutrophils (%) (Auto) 89.3 % Lymphocytes (%) (Auto) 8.3 % Monocytes (%) (Auto) 2.3 % Eosinophils (%) (Auto) 0.0 % Basophils (%) (Auto) 0.1 % Neutrophils # (Auto) 8.3 TH/MM3 Lymphocytes # (Auto) 0.8 TH/MM3 Monocytes # (Auto) 0.2 TH/MM3 Eosinophils # (Auto) 0.0 TH/MM3 Basophils # (Auto) 0.0 TH/MM3 CBC Comment DIFF FINAL Differential Comment Sodium Level 140 MEQ/L Potassium Level 3.8 MEQ/L Chloride Level 107 MEQ/L Carbon Dioxide Level 24.7 MEQ/L Anion Gap 8 MEQ/L Blood Urea Nitrogen 17 MG/DL Creatinine 0.94 MG/DL Estimat Glomerular Filtration 80 ML/MIN Rate Random Glucose 135 MG/DL Calcium Level 8.9 MG/DL Physical Exam General General Appearance: No Acute Distress, Comfortable Appearance Remarks scalp lac appears ok Eyes Eye Exam: Sclera White, Extraocular Movement Intact Ears & Nose Ears & Nose Exam: Nasal Mucosa [place] Throat Throat Exam: Oral Mucosa [place] & Moist Neck Neck Exam: Neck Supple, Trachea Midline Pulmonary Resp Exam: Clear Bilaterally, Breath Sounds Equal Cardiology CV Exam: Regular, Normal Sinus Rhythm Gastrointestinal/Abdomen GI Exam: Soft, Non-Tender, Bowel Sounds Present Integumentary Skin Exam: Warm, Dry Extremeties Extremities Exam: No Edema, Pedal Pulses Palpable Neurologic Neuro Exam: Alert, Awake, Oriented, Speech Clear, Moving All Extremities Neuro Remarks mid left wrist/left hand weakness Psychiatric Psych Exam: Appropriate Responses PUD Prophylasis PUD Prophylaxis: Protonix Assessment/Plan Assessment/Plan ) Syncope ? etiology ) mild left upper ext weakness/ b/l forearm numbness ) Neck pain ) Degenerative disc disease, cervical s/p surgery ) Dehydration ) Degenerative disc disease, lumbar ) EtOH dependence ) Osteoarthritis Assessment and Plan Admission for observation which will include telemetry monitoring, vital signs, monitoring of labs Echocardiogram limited NL LVF EF 55 tp 60% No sig valvular diseas Carotid ultrasound bilateral , No Sig stenosis EEG Neg for sz spikes Neurology input appreciated On Telemetry , No sig arrthymia noted MR Cspine Noted acute minimally displaced posterior spinous process fracture of C4 with probably a sprain of the posterior interspinous ligament. No subluxations or evidence of anterior or posterior longitudinal ligament disruption. There is prevertebral fluid collection from C2-C5/C6, may be chronic seroma from previous surgery . A retropharyngeal abscess is doubted because the soft tissues do not appear indurated and the adjacent bones are normal. Appearance is not typical of a hematoma. There is also evidence of an epidural hematoma. Multilevel cervical degenerative changes are seen. Decadron Neuro surgery input awaited analgesic Monitor for any increased anxiety or tremors. counselled against Alcohol No signs of DT DVT prophaylaxis possible d/c home later this afternoon if ok w NSX addendum 3pm No evidence of arrthymia pt is eager to go home pt is cleared by NSx for d/c d/c home see Orders see mRS f/u pcp/ neurology total time spent > 38 min Young Garrett MD Oct 11, 2016 10:33
[2016-10-11 11:15] VITALS: BP 122/76; PULSE 83; RESP 18; TEMP 98.3; O2SAT 94
[2016-10-11] MEDS ORDERED: DEXA4TAB PO (15:07)
--- NOTE | 2016-10-11 16:17 | PD.CONS ---
(Topher Hogue MD) HPI Consult Requested By Primary Care Physician Quincy gOden M.D. (Topher Hogue MD) Service NRS Consult Requested By Dr. Garrett Reason for Consult hx DDD s/p spinal surgery s/p fall b/l upper ext numbness w slight weakness, please evaluate History of Present Illness Mr. Pillai is a 66-year-old male who presented to the emergency room following a syncopal episode and fall. The patient reports he woke up in the morning stood up and felt a spinning sensation and fell forward hitting the top of his head suffering a laceration. He also report injuring his neck after falling. He is complaining of cervical pain as well as dysesthesias radiating down the left upper extremity. He denies urinary or fecal dysfunction, focal weakness, dysphagia. He has a history of previous cervical fusion. An MRI of the cervical spine has been completed. A neurosurgical evaluation is requested. ( Barbara Gonzalez) Review of Systems Constitutional: DENIES: Fever, Chills Eyes: DENIES: Diplopia Ears, nose, mouth, throat: COMPLAINS OF: Vertigo Respiratory: DENIES: Hemoptysis Cardiovascular: COMPLAINS OF: Syncope, DENIES: Chest pain Genitourinary: DENIES: Urinary incontinence Musculoskeletal: COMPLAINS OF: Neck pain Neurologic: COMPLAINS OF: Paresthesias, DENIES: Localized weakness Psychiatric: DENIES: Hallucinations (Barbara Gonzalez) Past Family Social History Allergies: Coded Allergies: No Known Allergies (Unverified , 10/10/16) Past Medical History Hypertension Hyperlipidemia BPH Degenerative disc disease Past Surgical History Anterior cervical fusion Right knee surgery Left ulnar surgery Reported Medications per EMR Active Ordered Medications Last Impressions Head CT 10/10/16 0000 Signed Impressions: Service Date/Time: September 09:07 - CONCLUSION: Normal examination for a patient of this age. Alex Evangelista MD Cervical Spine MRI 10/10/16 0000 Signed Impressions: Service Date/Time: September 19:07 - CONCLUSION: 1. Acute, minimally displaced posterior spinous process fracture of C4 and with probably a sprain of the posterior interspinous ligament. No subluxations or evidence of anterior or posterior longitudinal ligament disruption. 2. There is a prevertebral fluid collection from C2-C5/C6 as described above. I believe this may be a chronic seroma from previous surgery/fusion at C6/C7 and C7/T1 but it is somewhat atypical for such as there seems to be some rim enhancement. A retropharyngeal abscess is doubted because the soft tissues do not appear indurated and the adjacent bones are normal. The appearance is not typical of a hematoma. There is also no evidence of an epidural hematoma. 3. Multilevel cervical degenerative changes as above. Patricio Wade MD Cervical Spine CT 10/10/16 0000 Signed Impressions: Service Date/Time: September 09:07 - CONCLUSION: 1. Mild degenerative changes as described above. There is no evidence of acute fracture. There is no significant spinal canal stenosis. David Burnett MD Carotid Artery Ultrasound 10/10/16 0000 Signed Impressions: Service Date/Time: September 11:57 - CONCLUSION: Normal examination for a patient of this age. Alex Evangelista MD Family History noncontributory Social History No current tobacco use, he drinks 2 glasses of wine daily. No illicit drug use. (Barbara Gonzalez) Physical Exam Vital Signs Vital Signs Date Time Temp Pulse Resp B/P Pulse Ox O2 Delivery O2 Flow Rate FiO2 10/11/16 11:15 98.3 83 18 122/76 94 10/11/16 08:42 77 10/11/16 07:31 97.9 76 18 150/76 95 154/88 121/90 10/11/16 04:53 98.1 99 19 161/ 93 180/95 189/97 10/11/16 00:24 98.4 70 20 136/82 96 10/11/16 00:13 80 10/10/16 20:44 98.5 73 20 140/84 94 10/10/16 19:43 73 10/10/16 17:30 98.6 79 18 129/64 94 Physical Exam Mr Emery is alert, awake and oriented to time, place and person. Speech is fluent. Cranial nerve examination: pupils to be equal, round and reactive to light. Extra-ocular movements are intact. Facial motor and sensory function are normal and symmetrical. Gross hearing appears intact. Sternocleidomastoid and trapezius muscles are symmetrical. Other cranial nerves are intact. Neck is soft and supple with a good range of motion without pain. Muscle strength is normal in all muscle groups of right upper and both lower extremities. Left upper extremity limited due to give away secondary to pain Sensory examination is intact to light touch and pin prick in both the upper and lower extremities. Deep tendon reflexes are symmetrical in both upper and lower extremities. There is a bilateral plantar flexion response. Cerebellar examination is unremarkable, without deficits. Laboratory Laboratory Tests Test 10/11/16 06:42 White Blood Count 9.3 Red Blood Count 5.00 Hemoglobin 15.1 Hematocrit 44.9 Mean Corpuscular Volume 89.8 Mean Corpuscular Hemoglobin 30.2 Mean Corpuscular Hemoglobin 33.6 Concent Red Cell Distribution Width 13.4 Platelet Count 222 Mean Platelet Volume 8.3 Neutrophils (%) (Auto) 89.3 Lymphocytes (%) (Auto) 8.3 Monocytes (%) (Auto) 2.3 Eosinophils (%) (Auto) 0.0 Basophils (%) (Auto) 0.1 Neutrophils # (Auto) 8.3 Lymphocytes # (Auto) 0.8 Monocytes # (Auto) 0.2 Eosinophils # (Auto) 0.0 Basophils # (Auto) 0.0 CBC Comment DIFF FINAL Differential Comment Sodium Level 140 Potassium Level 3.8 Chloride Level 107 Carbon Dioxide Level 24.7 Anion Gap 8 Blood Urea Nitrogen 17 Creatinine 0.94 Estimat Glomerular Filtration 80 Rate Random Glucose 135 Calcium Level 8.9 (Topher Hogue MD) Result Diagram: 10/11/16 0642 10/11/16 0642 Imaging Last Impressions Head CT 10/10/16 0000 Signed Impressions: Service Date/Time: September 09:07 - CONCLUSION: Normal examination for a patient of this age. Alex Evangelista MD Cervical Spine MRI 10/10/16 0000 Signed Impressions: Service Date/Time: September 19:07 - CONCLUSION: 1. Acute, minimally displaced posterior spinous process fracture of C4 and with probably a sprain of the posterior interspinous ligament. No subluxations or evidence of anterior or posterior longitudinal ligament disruption. 2. There is a prevertebral fluid collection from C2-C5/C6 as described above. I believe this may be a chronic seroma from previous surgery/fusion at C6/C7 and C7/T1 but it is somewhat atypical for such as there seems to be some rim enhancement. A retropharyngeal abscess is doubted because the soft tissues do not appear indurated and the adjacent bones are normal. The appearance is not typical of a hematoma. There is also no evidence of an epidural hematoma. 3. Multilevel cervical degenerative changes as above. Patricio Wade MD Cervical Spine CT 10/10/16 0000 Signed Impressions: Service Date/Time: September 09:07 - CONCLUSION: 1. Mild degenerative changes as described above. There is no evidence of acute fracture. There is no significant spinal canal stenosis. David Burnett MD Carotid Artery Ultrasound 10/10/16 0000 Signed Impressions: Service Date/Time: September 11:57 - CONCLUSION: Normal examination for a patient of this age. Alex Evangelista MD (Topher Hogue MD) Imaging Last Impressions Head CT 10/10/16 0000 Signed Impressions: Service Date/Time: September 09:07 - CONCLUSION: Normal examination for a patient of this age. Alex Evangelista MD Cervical Spine MRI 10/10/16 0000 Signed Impressions: Service Date/Time: September 19:07 - CONCLUSION: 1. Acute, minimally displaced posterior spinous process fracture of C4 and with probably a sprain of the posterior interspinous ligament. No subluxations or evidence of anterior or posterior longitudinal ligament disruption. 2. There is a prevertebral fluid collection from C2-C5/C6 as described above. I believe this may be a chronic seroma from previous surgery/fusion at C6/C7 and C7/T1 but it is somewhat atypical for such as there seems to be some rim enhancement. A retropharyngeal abscess is doubted because the soft tissues do not appear indurated and the adjacent bones are normal. The appearance is not typical of a hematoma. There is also no evidence of an epidural hematoma. 3. Multilevel cervical degenerative changes as above. Patricio Wade MD Cervical Spine CT 10/10/16 0000 Signed Impressions: Service Date/Time: September 09:07 - CONCLUSION: 1. Mild degenerative changes as described above. There is no evidence of acute fracture. There is no significant spinal canal stenosis. David Burnett MD Carotid Artery Ultrasound 10/10/16 0000 Signed Impressions: Service Date/Time: September 11:57 - CONCLUSION: Normal examination for a patient of this age. Alex Evangelista MD (Barbara Gonzalez) Attending Statement Neuro. I have reviewed his clinical and radiological findings. Stable radiological findings. Non surgical management with analgesics and activity restrictions Respiratory. pulmonary toilette, nasotracheal suction, and breathing treatments with nebulizers. syncope. Defer to neurologist orthostatic blood pressure assessment PT and OT evaluation / arm strenghtening Nutrition. NPO Renal. monitor closely urine output, BUN and creatinine Endocrine. Monitor serial Acu checks and SSI as needed in detail ID monitor for signs of infection Protonix for stress ulcer prophylaxis Luis hose and SCD's for DVT prophylaxis (Topher Hogue MD) Topher Hogue MD Oct 11, 2016 16:17 Barbara Gonzalez Oct 11, 2016 16:47
== END 2016-10-11 17:43 | disposition home or self-care (01) ==
LOC: NEPC 08:41 → NEDA 11:08 → NEPHCDU 16:01
PROVIDERS: ADMIT Specialist; ATTEND Specialist
DX: R55 Syncope and collapse (principal); R20.0 Anesthesia of skin; S01.81XA Laceration without foreign body of other part of head, initial encounter; W18.39XA Other fall on same level, initial encounter; Z23 Encounter for immunization; Z79.899 Other long term (current) drug therapy; M50.30 Other cervical disc degeneration, unspecified cervical region; M51.36 Other intervertebral disc degeneration, lumbar region; E86.0 Dehydration; M17.11 Unilateral primary osteoarthritis, right knee; I10 Essential (primary) hypertension; E78.5 Hyperlipidemia, unspecified; N40.0 Benign prostatic hyperplasia without lower urinary tract symptoms
CPT/HCPCS: 12014; 70450; 72125; 72156; 80048; 81001; 82550; 83735; 84484; 85025; 85610; 85730; 90471; 90714; 90732; 93005; 93306; 93880; 95819; 99285; A9579; G0378; J7030; J8540; G0009